=== PATIENT | male | born 1970 | race Caucasian/White ===

== ENCOUNTER 2021-04-17 05:18 | Emergency (ER) | payer BC ==
[~2021-04-17] VITALS: Ht 180.3 cm; Wt 84.8 kg
[2021-04-17 05:22] VITALS: BP 164/106
--- NOTE | 2021-04-17 05:30 | NUR ---
Sapna diamond in [facility] - 04/17/21 at 0531 by RADHA PATIENT AMBULATED TO BED 3
--- NOTE | 2021-04-17 05:31 | NUR ---
PATIENT TO BED 9 AMBULATORY
--- NOTE | 2021-04-17 05:37 | NUR ---
50 YO/M BIB SELF W C/O HIGH BLOOD PRESSURE AT HOME OF 195/119 AT 0400 UPON WAKING UP + "EARS THUMPING" (WHICH RESOLVED SHORTLY AFTER WAKING). PT DENIES ANY DIZZINESS, BLURRY VISION, CHEST PAIN, SOB, N/V/D. DENIES TAKING ANY MEDICATION FOR BP. PT CURRENT BP 168/87. NO DEFICITS IN UPPER AND LOWER EXTREMITIES NOTED. PT SITTING ON BED LOCKED IN LOWEST POSITION W X1 SIDERAIL UP. BREATHING EVEN UNLABORED. NAD NOTED, WILL CONTINUE TO MONITOR. PMH:DENIES NKA
[2021-04-17] MEDS ORDERED: CLONIDINE HYDROCHLORIDE 0.1 MG TAB PO ONE (05:40)
[2021-04-17] MEDS ORDERED: AMLO-271 PO (05:43)
[2021-04-17] MEDS ORDERED: CLON0.1T16 PO (05:43)
--- NOTE | 2021-04-17 05:53 | NUR ---
PER ERMD REASSESS BP 15MIN AFTER ADMIN OF CATAPRESS AND OK FOR DISCHARGE IF BP STABLE.
--- NOTE | 2021-04-17 06:02 | NUR ---
PT BP AT 159/81, 83HR, PER ERMD PT OK FOR DISCHARGE AT THIS TIME.
[2021-04-17 06:03] VITALS: BP 159/81
--- NOTE | 2021-04-17 06:03 | NUR ---
Patient discharged with v/s stable. Written and verbal after care instructions given and explained. Patient alert, oriented and verbalized understanding of instructions. Ambulatory with steady gait. All questions addressed prior to discharge. ID band removed. Patient advised to follow up with PMD. Rx of CATAPRESS, AMLODIPINE BESYLATE given. Patient educated on indication of medication including possible reaction and side effects. Opportunity to ask questions provided and answered.
== END 2021-04-17 06:03 | disposition home or self-care (01) ==
LOC: MED 05:18
DX: I10 Essential (primary) hypertension (principal); Z79.899 Other long term (current) drug therapy
CPT/HCPCS: 99283